=== PATIENT | male | born 1960 | race American Indian/Alaskan Native ===

== ENCOUNTER 2016-12-23 06:28 | Day surgery (SDC) | payer BC ==
[2016-12-23 07:21] VITALS: BMI 28.8
[2016-12-23] MEDS ORDERED: Propofol 10 mg/ml Inj (20 ML) ONE (08:01)
[2016-12-23] MEDS ORDERED: Lidocaine Hydrochloride 10 ML INJ ONE (08:19)
[2016-12-23 08:31] VITALS: TEMP 98
[2016-12-23 08:51] VITALS: PULSE 60; O2SAT 96
[2016-12-23 09:35] VITALS: BP 115/78; RESP 18
== END 2016-12-23 09:15 | disposition home or self-care (01) ==
LOC: C.ENDO 06:28
PROVIDERS: ATTEND Internal Medicine Gastroenterology
DX: K25.9 Gastric ulcer, unspecified as acute or chronic, without hemorrhage or perforation (principal); K29.70 Gastritis, unspecified, without bleeding; K44.9 Diaphragmatic hernia without obstruction or gangrene
CPT/HCPCS: 43239; 88305; J2704; J3010; J7040

== ENCOUNTER 2017-02-25 06:36 | Day surgery (SDC) | payer BC ==
[2017-02-25 07:10] VITALS: BMI 28.2
[2017-02-25] MEDS ORDERED: Propofol 10 mg/ml Inj (20 ML) ONE ×2 (08:36→08:43)
[2017-02-25] MEDS ORDERED: Lactated Ringer's 500 ML IV SCH (09:00)
[2017-02-25 13:13] VITALS: TEMP 97.1
[2017-02-25 13:31] VITALS: BP 144/80; PULSE 54; RESP 16; O2SAT 99
== END 2017-02-25 09:51 | disposition home or self-care (01) ==
LOC: C.ENDO 06:36
PROVIDERS: ATTEND Internal Medicine Gastroenterology
DX: K25.9 Gastric ulcer, unspecified as acute or chronic, without hemorrhage or perforation (principal); K29.70 Gastritis, unspecified, without bleeding; K44.9 Diaphragmatic hernia without obstruction or gangrene
CPT/HCPCS: 43239; 88305; 88313; 88342; J2704; J3010; J7120